=== PATIENT | female | born 1990 | race Two or more races ===

== ENCOUNTER 2024-06-19 09:03 | Outpatient (RCR) | payer MEDICAID, SELFPAY ==
--- NOTE | 2024-06-19 14:02 | CTCCONSULT_ITS ---
Patient: GRIFFIN ODELL : 1990 MR#: [id number] Page 2 of 2 CONSULTATION NOTE DATE OF CONSULTATION: 06/19/2024 NAME: GRIFFIN ODELL ACCOUNT: [id number] : 1990 AGE: 33 REFERRING PHYSICIAN: Olivia Powell MD PRIMARY PHYSICIAN: Olivia Powell MD REASON FOR VISIT: Severe iron deficiency anemia HISTORY OF PRESENT ILLNESS: 33-year-old female with 5 children. Patient's oldest child is 17-year-old. Patient says she that she has heavy menstruation and a diagnosis of endometriosis. Patient menstruation last 7 days and is very heavy. She passes frequent clots. She has been feeling fatigued and tired. She feels dizziness. She also have hair loss. She has very poor mood. She denies any bleeding per rectum. Her fatigue and tiredness has been getting progressively worsened. She rates it 7 out of 10. She has very little interest in doing anything. She work as a demand generation manager. Denies shortness of breath. OTHER MEDICAL HISTORY/CONDITIONS: ANEMIA MENORRHAGIA THYROID NODULE VITAMIN D DEFICIENCY PLANTAT FASCITIS POLYCYSTIC OVARIAN SYNDROME CSECTIONS X3 ( 2007,2009,2019) TUBAL LIGATION 2019 FAMILY HISTORY: Father:?DENIES Mother:?DENIES Sibling:?DENIES Children:?DENIES Cancer?History:?DENIES Patient?denies?family?cancer?history. SOCIAL HISTORY: Occupational?History:?[employer] Education?Level:?College Graduate, 2 year degree Marital?Status:? 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 None?[place]ra Meds? Medications Never Reconciled ALLERGIES: No Known Drug Allergies REVIEW OF SYSTEMS: A complete 14-point review of systems was performed and is negative except as noted in interval history. PHYSICAL EXAMINATION: VITAL SIGNS: Temperature?98.7, B/P?117/85, Height?66?inches, Oxygen?Saturation?100% Weight?175?lbs PAIN: 0 - No pain ECOG Performance Status: 1 - Symptomatic; ambulatory; restricted in strenuous activity GENERAL APPEARANCE: Appears well, in no apparent distress, appropriately interactive. HEENT: Normocephalic, no temporal wasting, normal conjunctiva, no scleral icterus, normal hearing, lips without lesions, neck normal range of motion. CARDIOVASCULAR: Not assessed. PULMONARY: Normal respiratory effort, no respiratory distress or use of accessory muscles, speaking in full sentences, no tachypnea. EXTREMITIES: No pedal edema or cyanosis. SKIN: Normal skin appearance. NEUROLOGIC: Alert and oriented x4. PSHYCHIATRIC: Appropriate affect, mood normal, behavior normal, intact thought and speech. LABORATORY DATA: I have personally reviewed and interpreted each of the patient?s relevant lab tests, abnormal findings are below: Date ASSESSMENT/PLAN: Severe iron deficiency anemia from menorrhagia Patient's ferritin less than 5 Iron studies reviewed Discussed hysterectomy but patient do not want to remove her uterus Advised to discuss with her executive producer about option of copper T Will start on Ferrlecit Patient gets severely constipated on oral iron and unable to tolerate it Advised to stop oral iron Continue oral B12 folic acid and vitamin C ORDERS: Ferrlecit Will repeat labs after the completion of treatment with Ferrlecit RETURN TO CLINIC: I will see her back in the clinic in 3 months. BILLING AND COMPLIANCE: I reviewed external records from providers outside my specialty as summarized above. I spent a total of 50 minutes on this patient?s care on the day of their visit excluding time spent related to any billed procedures. This time includes time spent with the patient as well as time spent documenting in the medical record, reviewing patients records and tests, obtaining history, placing orders, communicating with other healthcare professionals, counseling the patient, family or caregiver, and/or care coordination for the diagnoses above. Electronically Signed by: Pako Zelaya MD T: 1:59 PM CC: PCP: Olivia Powell Referring: Olivia Powell This document was completed utilizing speech recognition software. Grammatical errors, random word insertions, pronoun errors, and incomplete sentences are an occasional consequence of this system due to software limitations, ambient noise, and hardware issues. Any formal questions or concerns about the content, text or information contained within the body of this dictation should be directly addressed to the provider for clarification.
== END 2024-07-13 23:59 | disposition home or self-care (01) ==
LOC: SCTC 09:03
PROVIDERS: PCP Nurse Practitioner; Referring Provider Nurse Practitioner; Visit Provider Internal Medicine Hematology & Oncology
DX: D50.0 Iron deficiency anemia secondary to blood loss (chronic) (principal); N92.0 Excessive and frequent menstruation with regular cycle
CPT/HCPCS: 99213; G0463

== ENCOUNTER → 2024-06-28 | Outpatient (CLI) | payer MEDICAID, SELFPAY ==
--- NOTE | 2024-06-28 08:45 | XR_ITS ---
Examination: Pelvic ultrasound, transabdominal, complete Technique: Transabdominal ultrasound of the pelvis performed using grayscale imaging Date and time of exam: June 28, 2024 0925 hours INDICATIONS: Irregular heavy vaginal bleeding beginning one year ago FINDINGS: Uterus 11.2 x 4.5 x 5.7 cm Solid mass posterior uterine body 19 x 19 x 19 mm Endometrial stripe 19 mm Right ovary 3.6 cm arterial flow small follicles Left ovary 4.0 cm arterial flow small follicles IMPRESSION: Recommend transvaginal pelvic sonography follow-up to confirm solid mass posterior uterine body 19 x 19 x 19 mm
== END | disposition home or self-care (01) ==
LOC: CDIM 08:56
PROVIDERS: PCP Nurse Practitioner; Referring Provider Nurse Practitioner; Visit Provider Nurse Practitioner
DX: R19.00 Intra-abdominal and pelvic swelling, mass and lump, unspecified site (principal)
CPT/HCPCS: 76856

== ENCOUNTER → 2024-08-08 | Outpatient (CLI) | payer MEDICAID, SELFPAY ==
--- NOTE | 2024-08-08 15:30 | XR_ITS ---
Examination: Transvaginal ultrasound of the pelvis, complete Technique: Transvaginal sonographic images pelvis performed using pate scale imaging Exam date and time: August 08, 2024 1553 hours INDICATIONS: Irregular heavy bleeding vaginal one year with posterior uterine solid mass 19 mm on pelvic sonogram June 28, 2024 FINDINGS: Uterus 9.1 cm endometrial stripe 0.3 cm Benign lower uterine segment cervical cysts Ovaries obscured by bowel gas IMPRESSION: Limited study No uterine mass or intrauterine gestation.
== END | disposition home or self-care (01) ==
PROVIDERS: PCP Nurse Practitioner; Referring Provider Nurse Practitioner; Visit Provider Nurse Practitioner
DX: N85.8 Other specified noninflammatory disorders of uterus (principal)
CPT/HCPCS: 76830

== ENCOUNTER 2024-08-14 05:35 | Day surgery (SDC) | payer MEDICAID, SELFPAY ==
--- NOTE | 2024-08-11 11:30 | ESHP_ITS ---
RE: GRIFFIN ODELL : 1990 DATE OF ADMISSION: 08/14/2024 HISTORY OF PRESENT ILLNESS: This is a 33-year-old 5, para 5 with abnormal uterine bleeding and chronic pelvic pain with a history of endometriosis. She presents for diagnostic laparoscopy, possible fulguration of endometriosis as well as NovaSure endometrial ablation. ALLERGIES: ORILISSA. MEDICATIONS: None. PAST MEDICAL HISTORY: Endometriosis, pelvic adhesions, sterilization, delivery, depression, menstrual migraine. OBSTETRIC HISTORY: One previous normal delivery and three previous deliveries. PAST SURGICAL HISTORY: delivery in 2007, 2009, and 2019, bilateral tubal ligation in 10/2019, lysis of adhesions in 10/2019, and in 10/2017, diagnostic laparoscopy, lysis of adhesions, and fulguration of endometriosis. FAMILY HISTORY: Daughter with auditory processing disorder due to chromosomal abnormality; paternal aunt, colon cancer, paternal aunt and paternal grandmother hypothyroidism. SOCIAL HISTORY: She denies any alcohol, drug use, or smoking. REVIEW OF SYSTEMS: She denies any chest pain, palpitations, cough, fever, shortness of breath, or lower extremity pain. PHYSICAL EXAMINATION: VITAL SIGNS: Blood pressure is 120/80, heart rate 88, respirations 18, temperature 98.6. HEENT: Oropharynx and sclerae are clear. LUNGS: Clear to auscultation bilaterally. HEART: Regular rate and rhythm. ABDOMEN: Old Pfannenstiel scar noted. EXTREMITIES: Nontender. SKIN: No gross rashes or lesions. NEUROLOGIC: No focal deficit. ASSESSMENT: Chronic pelvic pain, secondary dysmenorrhea, endometriosis, failed conservative medical management, abnormal uterine bleeding. PLAN: Diagnostic laparoscopy, fulguration of endometriosis, hysteroscopy, fractional dilation and curettage and NovaSure endometrial ablation. Informed consent was obtained. The patient was made aware of the risks, complications, alternatives, and benefits of the proposed procedure and she agrees. She is aware of the risk of injury to bowel, bladder, uterus, ureters, adjacent organs, pulmonary embolism, deep vein thrombosis, injury to the vessels of the abdominal wall, hematoma, abscess, wound infection, wound dehiscence, pelvic infection, reoperation, repair of injury to internal organs, anesthesia complications, the possibility that a laparotomy needs to be performed to complete the procedure or control bleeding, and the possibility that the procedure is not able to be completed due to severe adhesions or technical difficulties. DT: 09:45:40 TT: 11:22:00 Ref: [id number] - TID: [id number] MTDD
[2024-08-13 09:05] VITALS: BMI 29.7
[2024-08-13 09:54] LABS: Basophils % (Auto) 1 % (0-2.5); Eosinophils # (Auto) 0.1 Thou/mm3 (0.0-0.5); Eosinophils % (Auto) 3 % (0-10); Hematocrit 32.9 % (36.0-46.0); Immature Granulocytes % (Auto) 0 % (0-0); Lymphocytes # (Auto) 1.6 Thou/mm3 (1.0-4.8); Lymphocytes % (Auto) 37 % (10-50); Mean Corpuscular HGB Conc 30.4 g/dl (31.0-37.0); Mean Corpuscular Hemoglobin 23.3 pg (25.0-35.0); Mean Corpuscular Volume 77 fL (80-100); Monocytes # (Auto) 0.4 Thou/mm3 (0.0-0.8); Monocytes % (Auto) 10 % (0-12); Neutrophils # (Auto) 2.2 Thou/mm3 (1.8-7.7); Neutrophils % (Auto) 50 % (37-80); Nucleated Red Blood Cell % 0 /100 WBC (0); Platelet Count 344 Thou/mm3 (140-440); RDW Standard Deviation 45.6 fL (36.4-46.3); White Blood Count 4.3 Thou/mm3 (3.6-11.0)
[2024-08-13 10:19] LABS: Alanine Aminotransferase 15 U/L (10-49); Albumin, Serum 4.2 gm/dL (3.5-5.0); Albumin/Globulin Ratio 1.4 (1.2-2.2); Alkaline Phosphatase 63 U/L (46-116); Anion Gap 9 (7-16); Aspartate Amino Transferase 18 U/L (0-34); BUN/Creatinine Ratio 18 Ratio (12-20); Beta HCG,Quantitative 1 mIU/mL (<5.0); Bilirubin,Total 0.3 mg/dL (0.3-1.2); Blood Urea Nitrogen 11 mg/dL (9-23); Calcium 9.4 mg/dL (8.3-10.6); Calcium (Corrected) 9.4 mg/dL (8.5-10.1); Carbon Dioxide 24.5 mMol/L (20.0-31.0); Chloride 107 mMol/L (98-107); Creatinine (Component) 0.6 mg/dL (0.6-1.3); Estimated Creatinine Clearance 139.1 mL/min (>60); Globulin 3.1 gm/dL (2.3-3.5); Glucose 83 mg/dL (74-106); Osmolality,Calculated 277 (275-295); Partial Thromboplastin Time 25.3 Seconds (22.0-36.0); Prothrombin Time 10.7 Seconds (9.0-12.2); Sodium 140 mMol/L (136-145); Total Protein 7.3 gm/dL (5.7-8.2); eGFR > 60 See Note
[2024-08-14] VITALS (9 sets, daily range): BP systolic 98–113; BP diastolic 67–78; PULSE 68–120; RESP 12–19; TEMP 36.1–36.6; O2SAT 99–100; BMI 28.7
--- NOTE | 2024-08-14 08:50 | SUR.PHASEI ---
0850: Pt. AAOx4, vitals stable, breathing unlabored, no complaint of pain or nasuea, x3 Dermabond sites to ABD CDI, no active bleed noted, peripad in place with scant amount of blood, report received from MD Orourke, Ivette RN, and Suzi HATFIELD.
[2024-08-14] MEDS: fentaNYL CIT INJ 50 mCg/ML AMP 2ML 25 MCG IV ×4 (08:58→09:19)
[2024-08-14] MEDS: ONDANSETRON INJ 2 MG/ML INJ 2 ML 4 MG IV (09:47)
--- NOTE | 2024-08-14 10:02 | SUR.PHASEII ---
1002: Pt. AAOx4, vitals stable, breathing unlabored, no complaint of pain or nausea, x3 dermabond sites to ABD CDI, peripad in place with same amount of blood as arrival to PACU, pt. tolerated bites of ice chips well, pt. ambulated to wheelchair with steady gait and no assist, no complications. Gave discharge instructions to the pt. and her ride, both verbalized understanding and had no further questions. Pt. left with all personal belongings.
--- NOTE | 2024-08-14 19:29 | ESOP_ITS ---
RE: GRIFFIN ODELL : 1990 DATE OF OPERATION: 08/14/2024 PREOPERATIVE DIAGNOSES: 1. Chronic pelvic pain. 2. Dysmenorrhea. 3. Endometriosis. 4. Failed conservative medical management. 5. Abnormal uterine bleeding. POSTOPERATIVE DIAGNOSES: 1. Chronic pelvic pain. 2. Dysmenorrhea. 3. Stage I endometriosis. 4. Failed conservative medical management. 5. Abnormal uterine bleeding. PROCEDURES PERFORMED: 1. Diagnostic laparoscopy. 2. Fulguration of endometriosis. 3. Hysteroscopy. 4. Fractional dilatation and curettage. 5. Failed NovaSure endometrial ablation. SURGEON: Choco Coleman DO SVP OF DIGITAL: GAUTAM Liao ANESTHESIA: General. ANESTHESIOLOGIST: Dr. Orourke. ESTIMATED BLOOD LOSS: 5 mL. COMPLICATIONS: None. COUNTS: Correct. PATHOLOGY: 1. Endocervical curettings. 2. Endometrial curettings. FINDINGS: Superficial endometriotic implants on the left uterosacral ligament. Ovaries, uterus, and fallopian tubes appear grossly within normal limits. No pelvic adhesions. Uterine cavity was free of any endometrial polyps or submucous myomas. DESCRIPTION OF PROCEDURE: After proper informed consent was obtained and the patient was made aware of the risks, complications, alternatives, and benefits of the proposed procedure, she was taken to the operating room where she underwent induction of general anesthesia. She was placed in the dorsal lithotomy position. She was prepped and draped in the usual sterile fashion. A timeout was performed. An acorn uterus manipulator was placed. Attention was then turned to the abdomen where the physician regowned and gloved and a 5 mm incision was made in the umbilical fold with tenting up of the abdomen. A Veress needle was inserted. Saline confirmed intra-abdominal placement. An artificial pneumoperitoneum was created to 10 mmHg. The Veress needle was then removed. The 5 mm trocar was inserted with tenting of the abdomen. The laparoscope connected to the video camera was then utilized to visualize the pelvis. A second incision was made in the midline 2 cm above the symphysis pubis, and through this incision, a 5-mm trocar was inserted under direct visualization of the laparoscope. Attention was then turned to the left lower quadrant where a 5-mm incision was made under direct visualization of the laparoscope and a 5-mm trocar was inserted. Using the 1136 Harmonic scalpel, fulguration of the endometriosis was performed and hemostasis was achieved. All instruments were removed from the abdomen after the carbon monoxide was removed from the peritoneal cavity. The incisions were closed with 4-0 Monocryl and infiltrated with Marcaine 0.25% without epinephrine and covered with Dermabond. Attention was then turned to the vagina where the speculum was placed. The [place] manipulator was then removed and the 5.5 mm Omni hysteroscope was then utilized to visualize the endocervix and uterine cavity and the above findings noted. The uterus sounded to 9.0 cm. The cervical length was 3.5 cm. [facility]ocervical curettings were [facility]; specimen sent to pathology. Uterine cavity curettings were obtained and specimen sent to pathology. The NovaSure catheter was plugged into the controller and it went through its purge cycle. 5.5 cm was entered on the Novasure catheter and the array was appropriately seated in the uterine cavity. The carbon monoxide cavity integrity assessment test was performed and despite the seal, carbon dioxide leaked out of the cervix between the catheter and the cervical canal preventing the performance of the endometrial ablation. Adjustments were made with the seal and the carbon monoxide cavity integrity assessment test was repeated and the carbon dioxide continued to leak out through the patulous cervix. Therefore, no further attempts were made to perform the endometrial ablation. The catheter was retracted into the sheath. It was removed from the uterine cavity. It was redeployed and found to be complete and intact. There was no bleeding at the end of the procedure. All instruments were removed from the vagina. She was reversed from general anesthesia in the supine position and transferred to recovery room in stable condition. I discussed with the patient's family the nature of her condition, the intraoperative findings, including the inability to perform the endometrial ablation. All questions answered. DT: 08:58:46 TT: 09:58:00 Ref: [id number] - TID: [id number] MTDGabino
== END 2024-08-14 10:02 | disposition home or self-care (01) ==
PROVIDERS: PCP Family Medicine; Referring Provider Specialist; Visit Provider Specialist
PROC: 0U5B8ZZ Destruction of Endometrium, Via Natural or Artificial Opening Endoscopic (ICD-10-PCS; CPT 58563; principal; 2024-08-14 07:30)
DX: N80.9 Endometriosis, unspecified (principal); N94.6 Dysmenorrhea, unspecified; G89.29 Other chronic pain
CPT/HCPCS: 58563; 58120; 36415; 80053; 84702; 85025; 85610; 85730; 86850; 86900; 86901; A4217; A4649; J0131; J0690; J1100; J2250; J2405; J2704; J3010; J3490; A9270; J0665

== ENCOUNTER 2024-09-05 08:03 | Outpatient (RCR) | payer MEDICAID, SELFPAY | END 2024-09-12 23:59 | disposition home or self-care (01) | LOC: SCTC 08:03 | PROVIDERS: PCP Nurse Practitioner; Referring Provider Family Medicine; Visit Provider Internal Medicine Hematology & Oncology | DX: D50.0 Iron deficiency anemia secondary to blood loss (chronic) (principal) | CPT/HCPCS: 96365; 96375; J2916; J2919; J3490; J7050 ==

== ENCOUNTER 2024-10-04 13:29 | Outpatient (RCR) | payer MEDICAID, SELFPAY ==
[2024-09-13 15:06] LABS: Basophils # (Auto) 0.1 Thou/mm3 (0.0-0.2); Basophils % (Auto) 1 % (0-2.5); Eosinophils # (Auto) 0.1 Thou/mm3 (0.0-0.5); Eosinophils % (Auto) 1 % (0-10); Hematocrit 31.4 % (36.0-46.0); Hemoglobin 9.8 g/dL (12.0-16.0); Immature Granulocytes % (Auto) 0 % (0-0); Immature Granulocytes Auto 0.01 Thou/mm3 (0.00-0.00); Lymphocytes # (Auto) 1.7 Thou/mm3 (1.0-4.8); Lymphocytes % (Auto) 28 % (10-50); Mean Corpuscular HGB Conc 31.2 g/dl (31.0-37.0); Mean Corpuscular Volume 77 fL (80-100); Monocytes # (Auto) 0.7 Thou/mm3 (0.0-0.8); Monocytes % (Auto) 11 % (0-12); Neutrophils # (Auto) 3.7 Thou/mm3 (1.8-7.7); Neutrophils % (Auto) 60 % (37-80); Nucleated Red Blood Cell % 0 /100 WBC (0); Platelet Count 355 Thou/mm3 (140-440); RDW Standard Deviation 45.9 fL (36.4-46.3); Red Blood Count 4.09 Miln/mm3 (4.00-5.20); White Blood Count 6.2 Thou/mm3 (3.6-11.0)
[2024-09-13 15:25] LABS: Alanine Aminotransferase 12 U/L (10-49); Albumin, Serum 4.3 gm/dL (3.5-5.0); Albumin/Globulin Ratio 1.7 (1.2-2.2); Alkaline Phosphatase 66 U/L (46-116); Anion Gap 9 (7-16); Aspartate Amino Transferase 13 U/L (0-34); BUN/Creatinine Ratio 13 Ratio (12-20); Bilirubin,Total 0.3 mg/dL (0.3-1.2); Blood Urea Nitrogen 9 mg/dL (9-23); Calcium 8.8 mg/dL (8.3-10.6); Calcium (Corrected) 8.8 mg/dL (8.5-10.1); Carbon Dioxide 25.3 mMol/L (20.0-31.0); Chloride 108 mMol/L (98-107); Creatinine (Component) 0.7 mg/dL (0.6-1.3); Globulin 2.6 gm/dL (2.3-3.5); Glucose 88 mg/dL (74-106); Osmolality,Calculated 280 (275-295); Potassium 3.7 mMol/L (3.4-5.1); Sodium 142 mMol/L (136-145); Total Protein 6.9 gm/dL (5.7-8.2); eGFR > 60 See Note
[2024-09-13 15:27] LABS: Ferritin 11 ng/mL (7.3-270.7); Folate 11.62 ng/mL (>5.38); Iron 19 mcg/dL (50-170); Percent Iron Saturation 5 % (20-55); Total Iron Binding Capacity 355 mcg/dL (250-425); Unsaturated Iron Binding 336 (225-295); Vitamin B12 350 pg/mL (211-911)
== END 2024-10-13 23:59 | disposition home or self-care (01) ==
LOC: SCTC 13:29
PROVIDERS: PCP Nurse Practitioner; Referring Provider Nurse Practitioner; Visit Provider Internal Medicine Hematology & Oncology
DX: D50.0 Iron deficiency anemia secondary to blood loss (chronic) (principal); N80.9 Endometriosis, unspecified
CPT/HCPCS: 80053; 82607; 82728; 82746; 83540; 83550; 85025; 96365; 96375; A4216; J2916; J2919; J3490; J7040; J7050

== ENCOUNTER 2024-10-24 14:27 | Outpatient (RCR) | payer MEDICAID, SELFPAY | END 2024-11-12 23:59 | disposition home or self-care (01) | LOC: SCTC 14:27 | PROVIDERS: PCP Nurse Practitioner; Referring Provider Nurse Practitioner; Visit Provider Nurse Practitioner Family | DX: D50.0 Iron deficiency anemia secondary to blood loss (chronic) (principal); N92.0 Excessive and frequent menstruation with regular cycle | CPT/HCPCS: 96365; 96375; A4216; J2916; J2919; J3490; J7040; J7050 ==

== ENCOUNTER 2024-12-12 11:31 | Outpatient (RCR) | payer MEDICAID, SELFPAY | END 2024-12-13 23:59 | disposition home or self-care (01) | LOC: SCTC 11:31 | PROVIDERS: PCP Nurse Practitioner; Referring Provider Nurse Practitioner; Visit Provider Internal Medicine Hematology & Oncology | DX: D50.0 Iron deficiency anemia secondary to blood loss (chronic) (principal); N92.0 Excessive and frequent menstruation with regular cycle | CPT/HCPCS: 36415; 36430; 36591; 96361; 96365; 96366; 96372; 96375; 96415; 96549; 99212; A4216; J2916; J2919; J3490; J7040; J7050; G0463 ==